=== PATIENT | female | born 1970 | race Caucasian/White ===

== ENCOUNTER 2018-08-03 06:47 | Inpatient (IN) | payer OTHER ==
[2018-08-03] VITALS (35 sets, daily range): BP systolic 123–150; BP diastolic 72–96; PULSE 68–104; RESP 15–25; Ht 157.5 cm; Wt 67.8 kg
[~2018-08-03] VITALS: Ht 157.5 cm; Wt 67.8 kg
[~2018-08-03 06:47] MED LIST: AMIT50TA3; CALC1TAB80; HYDR25TA6; LOSA50TA14
[2018-08-03] MEDS ORDERED: METOCLOPRAMIDE 10 MG INJ ONE (07:00)
[2018-08-03] MEDS ORDERED: CEFAZOLIN 1 GM INJ ONE (07:00)
[2018-08-03] MEDS ORDERED: LIDOCAINE 2% (SDV) 5 ML INJ ONE (07:00)
[2018-08-03] MEDS ORDERED: PROPOFOL 200 MG INJ ONE (07:00)
[2018-08-03] MEDS ORDERED: DEXAMETHASONE 4 MG/ML 5 ML INJ ONE (07:00)
[2018-08-03] MEDS ORDERED: DESFLURANE 15 MIN ONE (07:00)
[2018-08-03] MEDS ORDERED: ROCURONIUM 50 MG INJ ONE (08:05)
[2018-08-03] MEDS ORDERED: SUCCINYLCHOLINE CHLORIDE 100 MG/5 ML SYG IV ONE (08:05)
[2018-08-03] MEDS ORDERED: MIDAZOLAM 1 MG/ML 2 ML INJ ONE (08:05)
--- NOTE | 2018-08-03 08:19 | PREAC ---
Date/Time of Note Date/Time of Note DATE: 08/03/18 TIME: 08:18 Anesthesia Eval and Record Evaluation Time Pre-Procedure Interview DATE: 08/03/18 TIME: 08:18 Age 48 Sex female NPO: 8 hrs Preoperative diagnosis L5-S1 disc herniation Planned procedure L5-S1 minimally invasive decompression and fusion Past Medical History Past Medical History: Includes Cardio: HTN Neuro: Peripheral neuropathy Surgery & Anesthesia Issues No known issue Meds Anticoagulation: No Beta Mary within 24 hr: No Reason Beta Mary not given: Pt. not on B-Mary Reported Medications Losartan Potassium* (Losartan Potassium*) 50 Mg Tablet, #30 11/05/15 Hydrochlorothiazide* (Hydrochlorothiazide*) 25 Mg Tab, #30 16 Calcium Carbonate/Vitamin D3 (Oysco 500+D Tablet) 1 Tab Tablet, #60 11/05/15 Amitriptyline Hcl* (Amitriptyline Hcl*) 50 Mg Tablet, #30 16 Meds reviewed: Yes Allergies Coded Allergies: No Known Allergy (Unverified , 11/05/15) Allergies Reviewed: Yes Labs/Studies Labs Reviewed: Reviewed by anesthesiologist test: Negative Pre-procedure Exam Last vitals Vital Signs Date Temp Pulse Resp B/P (MAP) Pulse Ox O2 O2 Flow FiO2 Time Delivery Rate 08/03/18 98.3 68 19 142/89 99 Room Air 07:27 (106) Airway: Adequate mouth opening, Adequate thyromental dist Mallampati: Mallampati III Teeth: Normal Lung: Normal Heart: Normal ASA Physical Status ASA physical status: 2 Emergency: None Planned Anesthetic General/MAC: ETT Planned Pain Management Parenteral pain med, Local by surgeon Pre-operative Attestations Prior to commencing anesthesia and surgery, the patient was re-evaluated, there was verification of: *The patient's identity *The results of appropriate recent lab work and preoperative vital signs *The above evaluation not changing prior to induction *Anesthetic plan, risk benefits, alternative and complications discussed with patient/family; questions answered; patient/family understands, accepts and wishes to proceed. ANDIE THOMPSON MD Aug 03, 2018 08:19
[2018-08-03] MEDS ORDERED: FENTAnyl 50 MCG/ML VIAL IV PRN (08:30)
[2018-08-03] MEDS ORDERED: HYDROmorphONE 1 MG/5 ML IV SYRINGE IV PRN ×2 (08:30)
[2018-08-03] MEDS ORDERED: LABETALOL HCL 20MG INJ IV PRN (08:30)
[2018-08-03] MEDS ORDERED: hydrALAzine 20 MG INJ IV PRN (08:30)
[2018-08-03] MEDS ORDERED: LEVALBUTEROL (NEB) 1.25 MG/0.5 ML AMP HHN PRN (08:30)
[2018-08-03] MEDS ORDERED: DIPHENHYDRAMINE 50 MG INJ IV PRN (08:30)
[2018-08-03] MEDS ORDERED: IPRATROPIUM (NEB) 0.5 MG/2.5 ML AMP HHN PRN (08:30)
[2018-08-03] MEDS ORDERED: MEPERIDINE 25 MG INJ IV PRN (08:30)
[2018-08-03] MEDS ORDERED: ONDANSETRON 4 MG INJ IV PRN (08:30)
[2018-08-03] MEDS ORDERED: POLYMYXIN/BACITRACIN 1L IRRIG ONE (08:39)
[2018-08-03] MEDS ORDERED: BUPIVACAINE 0.5% (SDV) 30 ML INJ ONE (08:41)
[2018-08-03] MEDS ORDERED: BUPIVACAINE 0.5%/EPI (SDV) 30 ML INJ ONE (08:41)
[2018-08-03] MEDS ORDERED: GELATIN SIZE 100 SPONGE ONE (08:41)
[2018-08-03] MEDS ORDERED: THROMBIN 5000 UNIT VIAL ONE (08:42)
--- NOTE | 2018-08-03 09:02 | HPN ---
Date/Time of Note Date/Time of Note DATE: 08/03/18 TIME: 09:01 Interval H&P Admission Note Pt. seen H&P reviewed: Systems changes noted below Patient with continued low back pain and radiating left more than right lower extremity pain and numbness. LIZZY LIAO MD Aug 03, 2018 09:02
[2018-08-03] MEDS ORDERED: LIDOCAINE 1% (MPF) 30 ML INJ ONE (09:42)
[2018-08-03] MEDS ORDERED: HYDROmorphONE 2 MG/ML SYG ONE (14:17)
[2018-08-03] MEDS ORDERED: BISACODYL 10 MG SUPP PR PRN (14:30)
[2018-08-03] MEDS ORDERED: NALOXONE (0.4 MG/ML) INJ IV PRN (14:30)
[2018-08-03] MEDS ORDERED: traMADol 50 MG TAB PO PRN (14:30)
[2018-08-03] MEDS: HYDROCODONE/APAP (10/325) TAB PO SCH ×2 (14:30→20:38)
--- NOTE | 2018-08-03 14:46 | OPR ---
Date/Time of Note Date/Time of Note DATE: 08/03/18 TIME: 14:46 Operative Report Procedure Date: Aug 03, 2018 Preoperative Diagnosis Please see below. Postoperative Diagnosis Please see below. Operation/Procedure Performed Please see below. Surgeon see signature line Information Receptionist None Anesthesia Type: general Estimated Blood Loss: 50 - 100 ml's (100cc) Transfusion none Specimen None Grafts/Implants Please see below. Tubes/Drains None Complications none Pt Condition Post Procedure: stable Disposition: PACU Procedure Description Date of operation: 08/03/2018 Operating surgeon: Samy Liao M.D. Preoperative diagnosis: 1. L5-S1 spondylolisthesis (grade 1) 2. Severe L5-S1 neuroforaminal stenosis Post operative diagnosis: 1. L5-S1 spondylolisthesis (grade 1) 2. Severe L5-S1 neuroforaminal stenosis Procedure(s) performed: 1. Decompressive left L5 hemilaminectomy (more than would be required for a simple transforaminal lumbar interbody fusion) 2. Complete left L5-S1 facetectomy for L5-S1 transforaminal interbody arthrodesis 3. Placement of intervertebral cage at L5-S1 (Nexxt Spine 9 mm height Three-D printed titanium TLIF cage) 4. L5-S1 posterior instrumentation (percutaneous RTI Devon 6.5 mm diameter pedicle screw at L5 and 7.5 mm diameter at S1) 5. L5-S1 posterior arthrodesis 6. Bone marrow aspirate harvest 7. Morselized local autologous bone graft harvest 8. Morcellized allograft placement (demineralized bone matrix putty) 9. Intraoperative fluoroscopy with professional interpretation 10. Intraoperative microscope with microdissection 11. Intraoperative neurophysiologic monitoring including SSEP, MEP and EMG testing Indication for procedure: This is a 48-year-old female with more than 1 year history of progressively increasing axial low back pain as well as radiating lower extremity pain much greater on the left than the right that appears to be at least in part in the L5 distribution involving pain, and numbness and mild weakness. The patient has already undergone outpatient physical therapy as well as interventional pain management. The patient has been taking tramadol and [place] in the past but still continues to have pain. The above surgery was discussed in detail with both the patient in a clinic setting as well as in the preoperative area with both the patient, her brothers and her fianc. The risks and benefits were again discussed in detail with the patient and her family with the risks including bleeding, infection, weakness, numbness, paralysis, cerebrospinal fluid leak, bowel or bladder dysfunction, failure of improvement of symptoms or worsening of symptoms, need for further surgeries including revision or extension of the decompression or fusion, as well as those risks associated with surgery and general anesthesia including heart attack, stroke, pneumonia, pulmonary embolism and . The patient and her family fully understood the above discussion and wished to proceed with the surgery. Description of operative procedure: The patient was brought to the operating r oom and after general anesthesia was obtained, she was placed prone on top of the open Lm table. Her arms were abducted less than 90 and placed in superman position. All pressure points were noted and padded appropriately. The midline lumbar spine was marked. A vertical paraspinal lines were marked approximately 4-1/2 cm lateral to midline on each side. After the skin was prepped and draped under standard sterile fashion, the spinal needle was inserted under AP fluoroscopy and the pedicle entry points of L5 and S1 were located along the lateral paraspinal lines. Then small vertical incisions connecting the entry points of the spinal needles was marked on each side. Local anesthetic were infiltrated into the marked incisions. The patient's grade 1 L5-S1 spondylolisthesis was noted on the lateral x-rays. The skin was then incised down to the level of the fascia. The Jamshidi needles were then used in order to cannulate the L5 and S1 pedicles using a combination of AP and lateral fluoroscopy. When the tip of the Jamshidi needle was at the pedicle vertebral body junction, another AP fluoroscopy was taken to confirm that the medial wall of the pedicles was not breached. Then the Jamshidi needles were slightly further advanced into the vertebral bodies. At the S1 level, attempt was made to points the entry point of the Jamshidi needles as close to the sacral promontory as possible. The Jamshidi needles were then exchanged with K wires. The K wires were then tested with EMG testing and all the testing thresholds were greater than 12 mA. Then the appropriate sized pedicle screws as noted above were placed on the right side under direct lateral fluoroscopy. Bicortical purchase was achieved at S1. No screws were placed on the left side yet and the K wires were then bent to the side and stapled to the drapes for now. The sharp K wire was inserted under direct lateral fluoroscopy over the left L5-S1 facet complex perpendicular to the L5-S1 disc space. Serial tube dilators were inserted and the posterior soft tissue was dissected off the posterior bony elements. The final working tube was inserted under direct lateral fluoroscopy medialized and placed parallel to the L5-S1 disc space and fixed to the table in that position. The operating microscope was brought into the field. The posterior soft tissue was denuded off the left L5-S1 facet complex. The L5-S1 facet complex was severely arthritic. The L5-S1 joint space and the synovium was then coagulated. Using a combination of a high-speed drill, curettes and Kerrison rongeurs we then performed a complete left L5-S1 facetectomy and foraminotomy. The left L5-S1 foramen was severely stenotic due to both foraminal disc herniation as well as facet arthropathy and disc collapse. The neuroforamen was completely decompressed. We also performed a left L5 decompressive hemilaminectomy. Although the ligamentum flavum was still intact we noted some intermittent clear fluid coming from midline that appeared to be CSF. This was covered up by an cottonoid. All the bone was harvested for later grafting. There was also a heavily calcified posterior disc osteophyte complex covering the L5-S1 annulus that had to be drilled down. The annulus was then cut. An osteotome had to be used initially under direct lateral fluoroscopy and are to be able to get into the L5-S1 disc space. Using serial kuldip we were able to perform the disc prep work. Care was taken not to injure the endplates. The disc space was collapsed and we were able to distract it up to a height of 9 mm using a less aggressive kuldip in her and to preserve the endplates. The endplates were completely decorticated and the disc material was removed. The disc space was copiously irrigated with antibiotic solution. Then the appropriate size intervertebral cage was packed with a combination of the locally harvested morcellized autologous bone graft, bone marrow aspirate that was harvested during the cannulation of the pedicles and demineralized bone matrix allograft putty. Some of the remaining biologic material was packed into the anterior part of the L5-S1 disc space. Then the cage was inserted under direct lateral fluoroscopy medialized and countersunk. Then several pieces of Surgicel was placed over the exposed dura that appeared to be intact. Then some DuraSeal was placed over the exposed dura and the neuroforamen. The remaining amount of biologic material was placed over the neuroforamen for posterior arthrodesis. The tube was then removed. The same sized pedicle screws were also placed on the left side under direct lateral fluoroscopy. Then the appropriate size christopher was inserted and the setscrews were then placed at the S1 level and tightened on each side. Using reducers simultaneously we were able to reduce at the L5 level as well allowing us to reduce the L5-S1 spondylolisthesis while taking serial lateral x-rays. All the set screws were then fully tightened with the torque and counter torque wrench device. The pedicle screw posts were then broken off. Final AP and lateral x-rays showed good positioning of the hardware. The wounds were copiously irrigated with anabolic solution. The muscle and fascia layers were then reapproximated with interrupted sutures. The dermal layers were reapproximated with interrupted sutures. The skin was reapproximated with a simple running Rapide 3-0 suture. A sterile dressing was placed on each of the incisions. The patient was then placed supine on the hospital bed. She was then woken up extubated and transported to the recovery room in stable condition. The patient was moving her upper and lower extremities equally and to command including ankle dorsiflexion and plantar flexion well. Estimated blood loss: 100 cc Blood products administered: None Packs/drains: None Type of anesthesia: General Incision: Bilateral paraspinal lumbar Skin closure: Simple running Rapide 3-0 suture Wound classification: Clean Specimen removed: None Patient's condition: Stable Prognosis: Good SAMY LIAO MD Aug 03, 2018 14:46
--- NOTE | 2018-08-03 14:46 | SIPON ---
Date/Time of Note Date/Time of Note DATE: 08/03/18 TIME: 14:44 Operative Report Preoperative Diagnosis L5-S1 spondylolisthesis (Grade I) with severe foraminal stenosis Postoperative Diagnosis Same as above Operation/Procedure Performed Minimally invasive L5-S1 transforaminal interbody fusion with posterior instrumented fusion Surgeon see signature line speech assistant None Anesthesia: general Estimated blood loss: 50 - 100 ml's (100cc) Transfusion Required none Specimen None Grafts/Implants See op report Complications none LIZZY LIAO MD Aug 03, 2018 14:46
[2018-08-03] MEDS: HYDROmorphONE 1 MG/5 ML IV SYRINGE IV PRN ×2 (15:06→16:12)
[2018-08-03] MEDS: FENTAnyl 50 MCG/ML VIAL IV PRN ×2 (15:21→15:50)
[2018-08-03] MEDS: D5W-0.45 NACL + KCL 20 MEQ 1,000 ML IV SCH (17:43)
[2018-08-03] MEDS: HYDROmorphONE 0.5 MG/0.5 ML SYG IV PRN ×3 (18:44→22:51)
[2018-08-03] MEDS: CYCLOBENZAPRINE 10 MG TAB PO PRN (19:21)
[2018-08-03] MEDS: CEFAZOLIN 1 GM/50 ML (PMX) 50 ML IVPB SCH (20:03)
[2018-08-03] MEDS: traMADol 50 MG TAB PO SCH (22:03)
[2018-08-03] MEDS: DOCUSATE SODIUM 100 MG CAP PO SCH (22:03)
[2018-08-04 00:10] VITALS: BP 137/79; PULSE 88; RESP 18
[2018-08-04] MEDS: ONDANSETRON 4 MG INJ IV PRN ×2 (01:48→07:39)
[2018-08-04] MEDS: HYDROmorphONE 0.5 MG/0.5 ML SYG IV PRN ×5 (01:52→09:58)
[2018-08-04] MEDS: HYDROCODONE/APAP (10/325) TAB PO SCH ×4 (02:50→20:30)
[2018-08-04] MEDS: CEFAZOLIN 1 GM/50 ML (PMX) 50 ML IVPB SCH ×2 (02:53→09:56)
[2018-08-04] MEDS: traMADol 50 MG TAB PO SCH ×6 (04:00→23:36)
[2018-08-04] MEDS: D5W-0.45 NACL + KCL 20 MEQ 1,000 ML IV SCH (04:03)
[2018-08-04] MEDS: PANTOPRAZOLE 40 MG INJ IV SCH (06:48)
[2018-08-04 07:32] VITALS: BP 130/81; PULSE 81; RESP 16
[2018-08-04] MEDS: DOCUSATE SODIUM 100 MG CAP PO SCH ×2 (09:56→22:08)
[2018-08-04] MEDS: CYCLOBENZAPRINE 10 MG TAB PO PRN ×2 (10:50→10:51)
[2018-08-04] MEDS: CYCLOBENZAPRINE 10 MG TAB PO SCH ×2 (10:51→22:08)
[2018-08-04] MEDS: HYDROmorphONE 0.2 MG/ML PCA IV SCH ×2 (11:22→17:19)
--- NOTE | 2018-08-04 12:35 | HP ---
Date/Time of Note Date/Time of Note DATE: 08/04/18 TIME: 12:33 Assessment/Plan VTE Prophylaxis Risk score (from Nsg)>0 risk: 11 SCD applied (from Nsg): Yes Pharmacological prophylaxis: LMWH Lines/Catheters IV Catheter Type (from Nrsg): Peripheral IV Urinary Cath still in place: Yes (IN OR) Reason Cath still needed: skin wounds contaminated by urine Assessment/Plan Hospital Course 1) back pain - s/p surgery - pain medication - continue to monitor Results 24hrs Laboratory Tests Test 08/03/18 14:50 Urine Color YELLOW Urine Clarity CLOUDY A Urine pH 8.0 Urine Specific [place] 1.009 Urine Ketones NEGATIVE Urine Nitrite NEGATIVE Urine Bilirubin NEGATIVE Urine Urobilinogen NEGATIVE Urine Leukocyte Esterase NEGATIVE Urine Microscopic RBC 0 Urine Microscopic WBC 0 Urine Amorphous Crystals FEW A Urine Mucus FEW A Urine Hemoglobin NEGATIVE Urine Glucose NEGATIVE Urine Total Protein NEGATIVE HPI/ROS Admit Date/Time Admit Date/Time Aug 03, 2018 at 06:47 Hx of Present Illness Patient with L5-S1 spondylolisthesis (Grade I) with severe foraminal stenosis comes in for surgical fusion. Patient underwent procedure and is here for continue post operative care PMH/Family/Social Past Medical History Medical History: no pertinent history Medications Current Medications Potassium Chloride/Dextrose/ Sod Cl 1,000 ml @ 100 mls/hr Q10H IV Last administered on 08/04/18at 04:03; Admin Dose 100 MLS/HR; Start 08/03/18 at 14:28 Acetaminophen/ Hydrocodone Bitart (Denio (10/325)) 2 tab Q6H PO Last administered on 08/04/18at 09:02; Admin Dose 2 TAB; Start 08/03/18 at 14:30 Ondansetron HCl (Zofran Inj) 4 mg Q6H PRN IV NAUSEA AND/OR VOMITING Last administered on 08/04/18at 07:39; Admin Dose 4 MG; Start 08/03/18 at 14:30 Bisacodyl (Dulcolax Supp) 10 mg DAILY PRN PA CONSTIPATION; Start 08/03/18 at 14:30 Docusate Sodium (Colace) 100 mg BID PO Last administered on 08/04/18at 09:56; Admin Dose 100 MG; Start 08/03/18 at 21:00 Pantoprazole (Protonix Iv) 40 mg DAILY@06 IV Last administered on 08/04/18at 06:48; Admin Dose 40 MG; Start 08/04/18 at 06:00 Naloxone HCl (Narcan) 0.2 mg Q2M PRN IV respiratory depression; Start 08/03/18 at 14:30 Hydromorphone HCl (Dilaudid) 0.4 mg Q30MIN PRN IV SEVERE PAIN LEVEL 7-10 Last administered on 08/04/18at 09:58; Admin Dose 0.4 MG; Start 08/03/18 at 21:00 Hydromorphone HCl (Dilaudid RAIL TRANSIT OPERATOR) 0 MG/HR CONTINUOUS R... Q4PCA IV Last administered on 08/04/18at 11:22; Admin Dose 6 MG; Start 08/04/18 at 11:00; Stop 08/05/18 at 11:00 Cyclobenzaprine HCl (Flexeril) 10 mg TID PO ; Start 08/04/18 at 13:00 Tramadol HCl (Ultram) 50 mg Q4H PO ; Start 08/04/18 at 15:00 Coded Allergies: No Known Allergy (Unverified , 11/05/15) Social History Smoking Status: Never smoker Exam/Review of Systems Vital Signs Vitals Vital Signs Date Temp Pulse Resp B/P (MAP) Pulse Ox O2 O2 Flow FiO2 Time Delivery Rate 08/04/18 97.6 81 16 130/81 99 Nasal 07:32 (97) Cannula 08/04/18 2.0 00:10 Intake and Output 08/03/18 08/03/18 08/04/18 1515:00 23:00 07:00 IntakeIntake Total 3000 ml 530 ml 1150 ml OutputOutput Total 625 ml 500 ml 2600 ml BalanceBalance 2375 ml 30 ml -1450 ml Exam Constitutional: well developed Head: normocephalic, atraumatic Neck: supple Respiratory: diminished breath sounds Cardiovascular: regular rate and rhythm Gastrointestinal: soft, non-tender Extremities: normal pulses CASEY COOPER Aug 04, 2018 12:35
[2018-08-04 15:15] VITALS: BP 136/80; PULSE 88; RESP 18
[2018-08-04] MEDS ORDERED: OXYCODONE/ACETAMINOPHEN (5/325) TAB PO SCH (18:00)
[2018-08-04 20:15] VITALS: BP 130/81; PULSE 85; RESP 18
[2018-08-04] MEDS ORDERED: OXYCODONE/ACETAMINOPHEN (5/325) TAB PO PRN (21:00)
[2018-08-04] MEDS ORDERED: AMITRIPTYLINE 50 MG TAB PO SCH (21:00)
--- NOTE | 2018-08-04 21:34 | CONS ---
Date/Time of Note Date/Time of Note DATE: 08/04/18 TIME: 21:33 Assessment/Plan Assessment/Plan Assessment/Plan Date of progress note: 08/04/2018 The patient is status post minimally invasive L5-S1 transforaminal lumbar interbody fusion postop day 1. The patient's postop pain is now better controlled with the addition of more pain medications. Her fianc is at her bedside. She is able to move her upper and lower extremities equally and with good strength bilaterally. Her preoperative left lower extremities radiating pain is now resolved. She does not have any new numbness of her upper or lower extremities. Her lumbar incisions are clean dry and intact. With the help of the patient's nurse, we have been able to get the patient out of bed and she has taken several steps around her room and is now sitting on a chair and appears to be quite comfortable. As I have spoken with the patient and her fianc, she can receive more physical therapy today. From a neurosurgical perspective she may be discharged home tomorrow. Activities as tolerated by the patient is to avoid lifting more than 15 or 20 pounds of weight and to avoid excessive bending and twisting at the waist. The patient is to wear her LSO brace when up and ambulating. She may shower and she needs to keep her incisions clean dry and intact. She will follow up with me in clinic in 2-3 weeks. All the patient and her fianc's questions have been answered. I have also relayed this information to Dr. Alcaraz's JEWELRY STORE MANAGER. LIZZY LIAO MD Aug 04, 2018 21:34
[2018-08-05] MEDS: HYDROmorphONE 0.2 MG/ML PCA IV SCH (01:39)
[2018-08-05 02:01] VITALS: BP 117/74; PULSE 92; RESP 18
[2018-08-05] MEDS: HYDROCODONE/APAP (10/325) TAB PO SCH ×3 (02:30→14:21)
[2018-08-05] MEDS: traMADol 50 MG TAB PO SCH ×5 (03:07→18:34)
[2018-08-05] MEDS: PANTOPRAZOLE 40 MG INJ IV SCH (06:48)
[2018-08-05 07:42] VITALS: BP 119/78; PULSE 79; RESP 18
[2018-08-05] MEDS: DOCUSATE SODIUM 100 MG CAP PO SCH (08:17)
[2018-08-05] MEDS: CYCLOBENZAPRINE 10 MG TAB PO SCH ×2 (08:19→13:22)
[2018-08-05] MEDS ORDERED: CALCIUM/VITAMIN D (500/200) TAB PO SCH (09:00)
[2018-08-05] MEDS ORDERED: LOSARTAN 50 MG TAB PO SCH (09:00)
[2018-08-05] MEDS ORDERED: HYDROCHLOROTHIAZIDE 25 MG TAB PO SCH (09:00)
--- NOTE | 2018-08-05 13:30 | PAC ---
Date/Time of Note Date/Time of Note DATE: 08/05/18 TIME: 13:30 Post-Anesthesia Notes Post-Anesthesia Note Last documented vital signs Vital Signs Date Temp Pulse Resp B/P (MAP) Pulse Ox O2 O2 Flow FiO2 Time Delivery Rate 08/05/18 18 09:00 08/05/18 98.3 79 119/78 97 Room Air 07:42 (92) 08/05/18 2.0 02:01 Activity: WNL Respiratory function: WNL Cardiovascular function: WNL Mental status: Baseline Pain reasonably controlled: Yes Hydration appropriate: Yes Nausea/Vomiting absent: Yes ANDIE THOMPSON MD Aug 05, 2018 13:30
[2018-08-05 14:37] VITALS: BP 114/80; RESP 17
[2018-08-05] MEDS ORDERED: TRAM50TA2 PO (15:13)
[2018-08-05] MEDS ORDERED: HYDR-3609 PO (15:13)
[2018-08-05] MEDS ORDERED: CYCL10TA7 PO (15:13)
[2018-08-05 19:34] VITALS: BP 129/71; PULSE 84; RESP 18
--- NOTE | 2018-08-11 21:12 | DS ---
Date/Time of Note Date/Time of Note DATE: 08/11/18 TIME: 21:05 Discharge Summary Admission/Discharge Info Admit Date/Time Aug 03, 2018 at 06:47 Discharge Date/Time Aug 05, 2018 at 21:00 Patient Condition: Stable Hx of Present Illness Patient with L5-S1 spondylolisthesis (Grade I) with severe foraminal stenosis comes in for surgical fusion. Patient underwent procedure and is here for continue post operative care. Hospital Course - L5-S1 spondylolisthesis (grade 1) and Severe L5-S1 neuroforaminal stenosis. S/p L5- S1 decompression and intervertebral cage placement by Dr Snider on 08/03/18. Pain is well control. Pt is able to ambulate with no problems, s/p PT eval ant treatment. Plan of care discussed with Dr Snider and Dr Alcaraz. Home Meds Active Scripts Tramadol HCl (Tramadol HCl) 50 Mg Tablet, 50 MG PO Q4H, #30 TAB Prov:JOSE F MOHAMUD 08/05/18 Hydrocodone/Acetaminophen (Hydrocodone-Acetamin 10-325 mg) 1 Each Tablet, 2 TAB PO Q6H, #30 TAB Prov:JOSE F MOHAMUD 08/05/18 Cyclobenzaprine Hcl* (Cyclobenzaprine Hcl*) 10 Mg Tablet, 10 MG PO TID, #30 TAB Prov:JOSE F MOHAMUD 08/05/18 Reported Medications Losartan Potassium* (Losartan Potassium*) 50 Mg Tablet, #30 11/05/15 Hydrochlorothiazide* (Hydrochlorothiazide*) 25 Mg Tab, #30 16 Calcium Carbonate/Vitamin D3 (Oysco 500+D Tablet) 1 Tab Tablet, #60 11/05/15 Amitriptyline Hcl* (Amitriptyline Hcl*) 50 Mg Tablet, #30 16 Follow-up Plan LSO brace when out of bed, follow-up with Dr. Lewis in 2 weeks. Primary Care Provider [facility] Time spent on discharge: > 30 minutes JOSE F MOHAMUD Aug 11, 2018 21:12
== END 2018-08-05 21:00 | disposition home or self-care (01) | DRG 455 ==
LOC: REC 06:47 → MS1 17:14 → EDSTATUS 08-19 07:30
PROVIDERS: ADMIT Neurological Surgery; ATTEND Neurological Surgery
PROC: 0SG3071 Fusion of Lumbosacral Joint with Autologous Tissue Substitute, Posterior Approach, Posterior Column, Open Approach (ICD-10-PCS; 2018-08-03)
PROC: 0SB40ZZ Excision of Lumbosacral Disc, Open Approach (ICD-10-PCS; 2018-08-03)
PROC: 07DS3ZZ Extraction of Vertebral Bone Marrow, Percutaneous Approach (ICD-10-PCS; 2018-08-03)
PROC: 4A11X4G Monitoring of Peripheral Nervous Electrical Activity, Intraoperative, External Approach (ICD-10-PCS; 2018-08-03)
PROC: 0SG30AJ Fusion of Lumbosacral Joint with Interbody Fusion Device, Posterior Approach, Anterior Column, Open Approach (ICD-10-PCS; principal; 2018-08-03 09:00)
DX: M43.17 Spondylolisthesis, lumbosacral region (principal); M51.27 Other intervertebral disc displacement, lumbosacral region; M48.07 Spinal stenosis, lumbosacral region; I10 Essential (primary) hypertension
CPT/HCPCS: 72114; 81001; 87086; 97116; 97162; 97530; C1713; C9113; J0690; J1100; J1170; J2250; J2405; J2765; J3010; J3480; L0639

== ENCOUNTER 2018-08-19 05:48 | Day surgery (SDC) | payer OTHER ==
[2018-08-16 17:02] VITALS: BMI 26.3
[2018-08-19] VITALS (9 sets, daily range): BP systolic 99–120; BP diastolic 68–88; PULSE 74–80; RESP 12–18; Ht 160 cm; Wt 66.2 kg
[~2018-08-19] VITALS: Ht 160 cm; Wt 66.2 kg
[~2018-08-19 05:48] MED LIST changes: +CYCL10TA7 PO; +HYDR-3609 PO; +TRAM50TA2 PO
[2018-08-19] MEDS ORDERED: FENTAnyl 50 MCG/ML VIAL IV PRN ×2 (07:00)
[2018-08-19] MEDS ORDERED: OXYCODONE/ACETAMINOPHEN (5/325) TAB PO PRN ×2 (07:00)
[2018-08-19] MEDS ORDERED: HYDROmorphONE 1 MG/5 ML IV SYRINGE IV PRN (07:00)
[2018-08-19] MEDS ORDERED: morphine (1 MG/ML) 10ML SYRINGE IV PRN (07:00)
[2018-08-19] MEDS ORDERED: ALBUTEROL 0.083% (NEB) 2.5 MG/3 ML AMP HHN PRN (07:00)
[2018-08-19] MEDS ORDERED: MEPERIDINE 25 MG INJ IV PRN (07:00)
[2018-08-19] MEDS ORDERED: ONDANSETRON 4 MG INJ IV PRN (07:00)
[2018-08-19] MEDS ORDERED: DIPHENHYDRAMINE 50 MG INJ IV PRN (07:00)
[2018-08-19] MEDS ORDERED: LABETALOL HCL 20MG INJ IV PRN (07:00)
--- NOTE | 2018-08-19 07:01 | PREAC ---
Date/Time of Note Date/Time of Note DATE: 08/19/18 TIME: 07:00 Anesthesia Eval and Record Evaluation Time Pre-Procedure Interview DATE: 08/19/18 TIME: 07:00 Age 48 Sex female NPO: 8 hrs Preoperative diagnosis L foot bunion Planned procedure L foot bunionectomy w/ osteotomy Past Medical History Past Medical History: Includes (fibromyalgia) Cardio: HTN Musculoskeletal: Rheumatoid arthritis Heme: Anemia Psych: Depression Surgery & Anesthesia Issues No known issue (lumbar surgery, hysterectomy) Meds Anticoagulation: No Beta Mary within 24 hr: No Reason Beta Mary not given: Pt. not on B-Mary Active Scripts Tramadol HCl (Tramadol HCl) 50 Mg Tablet, 50 MG PO Q4H, #30 TAB Prov:JOSE F MOHAMUD 08/05/18 Hydrocodone/Acetaminophen (Hydrocodone-Acetamin 10-325 mg) 1 Each Tablet, 2 TAB PO Q6H, #30 TAB Prov:JOSE F MOHAMUD 08/05/18 Cyclobenzaprine Hcl* (Cyclobenzaprine Hcl*) 10 Mg Tablet, 10 MG PO TID, #30 TAB Prov:JOSE F MOHAMUD 08/05/18 Reported Medications Losartan Potassium* (Losartan Potassium*) 50 Mg Tablet, #30 11/05/15 Hydrochlorothiazide* (Hydrochlorothiazide*) 25 Mg Tab, #30 11/05/15 Calcium Carbonate/Vitamin D3 (Oysco 500+D Tablet) 1 Tab Tablet, #60 11/05/15 Amitriptyline Hcl* (Amitriptyline Hcl*) 50 Mg Tablet, #30 11/05/15 Meds reviewed: Yes Allergies Coded Allergies: No Known Allergy (Unverified , 11/05/15) Allergies Reviewed: Yes Labs/Studies Labs Reviewed: Reviewed by anesthesiologist test: Negative Studies: ECG (nml, nsr), CXR (no active dz) Pre-procedure Exam Airway: Adequate mouth opening, Adequate thyromental dist Mallampati: Mallampati II Teeth: Abnormal (multiple missing lower teeth) Lung: Normal Heart: Normal ASA Physical Status ASA physical status: 2 Emergency: None Planned Anesthetic General/MAC: LMA Pre-operative Attestations Prior to commencing anesthesia and surgery, the patient was re-evaluated, there was verification of: *The patient's identity *The results of appropriate recent lab work and preoperative vital signs *The above evaluation not changing prior to induction *Anesthetic plan, risk benefits, alternative and complications discussed with patient/family; questions answered; patient/family understands, accepts and wishes to proceed. SERENA MILLAN Aug 19, 2018 07:01
[2018-08-19] MEDS ORDERED: LIDOCAINE 2% (MDV) 20 ML INJ ONE (07:08)
[2018-08-19] MEDS ORDERED: DEXAMETHASONE 4 MG/ML 1 ML INJ ONE (07:08)
[2018-08-19] MEDS ORDERED: BUPIVACAINE 0.5% (SDV) 30 ML INJ ONE (07:08)
[2018-08-19] MEDS ORDERED: POLYMYXIN/BACITRACIN 1L IRRIG ONE (07:10)
[2018-08-19] MEDS ORDERED: FENTAnyl 50 MCG/ML VIAL ONE (07:23)
[2018-08-19] MEDS ORDERED: ONDANSETRON 4 MG INJ ONE (07:23)
[2018-08-19] MEDS ORDERED: MIDAZOLAM 1 MG/ML 2 ML INJ ONE (07:23)
[2018-08-19] MEDS ORDERED: PROPOFOL 40 ML ONE (07:23)
[2018-08-19] MEDS ORDERED: CEFAZOLIN 1 GM INJ ONE (07:23)
[2018-08-19] MEDS ORDERED: LIDOCAINE 2% (SDV) 5 ML INJ ONE (07:23)
[2018-08-19] MEDS ORDERED: FAMOTIDINE 20 MG INJ ONE (07:24)
[2018-08-19] MEDS ORDERED: LACTATED RINGER'S 1,000 ML IV SCH (07:30)
--- NOTE | 2018-08-19 07:46 | HPN ---
Date/Time of Note Date/Time of Note DATE: 08/19/18 TIME: 07:46 Interval H&P Admission Note Pt. seen H&P reviewed: No system changes ZEESHAN ZARATE DPM Aug 19, 2018 07:46
[2018-08-19] MEDS ORDERED: METOCLOPRAMIDE 10 MG INJ ONE (08:21)
[2018-08-19] MEDS ORDERED: KETOROLAC 30 MG INJ ONE (08:21)
--- NOTE | 2018-08-19 08:40 | NUR ---
RECEIVED RESPONSIVE IN NO DISTRESS, LEFT FOOT DRESSING DRY AND INTACT WITH TOES EXPOSED, WARM TO TOUCH AND WITH GOOD CAP REFILL. ELEVATED LEFT FOOT ON A PILLOW AND ICE PACK PLACED OVER FOOT.
--- NOTE | 2018-08-19 08:41 | SIPON ---
Date/Time of Note Date/Time of Note DATE: 08/19/18 TIME: 08:40 Operative Report Preoperative Diagnosis bunion deformity left foot Postoperative Diagnosis bunion deformity left foot Operation/Procedure Performed bunionectomy with distal head osteotomy left first metatarsal Surgeon see signature line captain assistant none Anesthesia: general Estimated blood loss: none Transfusion Required none Specimen none Grafts/Implants none Complications none ZEESHAN ZARATE DPM Aug 19, 2018 08:41
[2018-08-19] MEDS: HYDROmorphONE 1 MG/5 ML IV SYRINGE IV PRN ×2 (09:02→09:12)
--- NOTE | 2018-08-19 09:22 | PAC ---
Date/Time of Note Date/Time of Note DATE: 08/19/18 TIME: 09:22 Post-Anesthesia Notes Post-Anesthesia Note Last documented vital signs Vital Signs Date Temp Pulse Resp B/P (MAP) Pulse Ox O2 O2 Flow FiO2 Time Delivery Rate 08/19/18 99 80 12 99/70 (80) 95 Room Air 09:09 08/19/18 8.0 08:49 08/19/18 99.0 08:40 Activity: WNL Respiratory function: WNL Cardiovascular function: WNL Mental status: Baseline Pain reasonably controlled: Yes Hydration appropriate: Yes Nausea/Vomiting absent: No DINA CHÁVEZ MD Aug 19, 2018 09:22
[2018-08-19] MEDS ORDERED: HYDROCODONE/APAP (5/325) TAB PO PRN (09:30)
--- NOTE | 2018-08-19 09:37 | NUR ---
AWAKE ALERT AND ORIENTED, STATED PAIN IS 1/10, NO S/S BLEEDING. LEFT LEG REMAINS ELEVATED ON A PILLOW WITH ICE PACK OVER FOOT. DAUGHTER UPDATED ON STATUS AND WILL COME IN 30 MINS TO APPLICATION SERVICES MANAGER PATIENT. REPORT TO MICHAEL CHERY, TRANSFERRED TO [facility], POST OP SHOE SENT WITH PATIENT.
--- NOTE | 2018-08-19 15:18 | NUR ---
1014-LEFT LEG ELEVATED,TOES WARM WITH PROMPT CAPILLARY REFILL,GOOD MOVEMENT & SENSATION.
--- NOTE | 2018-08-21 04:19 | OPR ---
DATE OF OPERATION: 08/19/2018 SURGEON: Harjeet Calderon DPM. ANESTHESIOLOGIST: Taylor Briscoe MD. ANESTHESIA: General. PREOPERATIVE DIAGNOSIS: Bunion deformity with hallux valgus, left foot. POSTOPERATIVE DIAGNOSIS: Bunion deformity with hallux valgus, left foot. OPERATION PERFORMED: Bunionectomy with distal head osteotomy, left first metatarsal. OPERATIVE PROCEDURE: The patient was brought into the operating room, placed on the table in a secure supine position. Cardiac monitoring, IV sedation, and an ankle pneumatic tourniquet were utilized for this case. Preoperatively, a total of twenty mL of Marcaine plain 0.05 percent were infiltrated in the form of a Gibson block into the left foot. Upon achieving anesthesia, the left foot and leg were prepped and draped in a sterile manner. The ankle pneumatic tourniquet was inflated to 250 mmHg. Procedure number 1 was then performed, a bunionectomy with osteotomy, left first metatarsal. A 4-cm dorsal medial incision was performed along the first metatarsophalangeal joint of the left foot. Incision was deepened. Superficial bleeders were cauterized and bovied as necessary. Next, the incision was deepened down to the capsule. A linear capsulotomy was performed. The capsule was reflected dorsally and plantarly. The hypertrophic medial eminence was transected with a power sagittal saw. A 0.45 Gregory wire was inserted from medial to lateral, 1.5 cm proximal to the metatarsophalangeal joint. A Chevron osteotomy was performed with the arms at 60 degrees. The osteotomy was through and through. The capital fragment was then trans located 3 mm laterally and fixated with an 18 mm x 3.0 mm cannulated Daphnie screw. Good fixation was achieved with no gapping or separation of the osteotomy site. The osteotomy was stable. The remaining bone was transected with a power sagittal saw and rasped smooth with a power rasp. Copious lavage was performed with sterile saline mixed with bacitracin solution. The capsule was then reapproximated with 2-0 and 3-0 Vicryl simple interrupted sutures. The subcutaneous tissue was closed with 4-0 Vicryl simple interrupted sutures, and the skin edges were reapproximated with a running 3-0 Prolene subcuticular stitch. The dressing consisted of pinch of benzoin cord Steri-Strips, Xeroform gauze, 4 x 4 gauze, 4 inch Kerlix roll, and a 2-inch Coban into a semi compressive dressing. Immediate hyperemia was noted to all digits of the left foot upon deflating the ankle tourniquet. No intraoperative complications were encountered. The patient tolerated the above procedure well and left the OR with vital signs stable and satisfactory. The patient will follow up 1 week postop. Dictated By: Harjeet Calderon DPM /[email or web address] /Document#: [id number]
== END 2018-08-19 10:14 | disposition home or self-care (01) ==
LOC: SDS 05:48
PROVIDERS: ATTEND Podiatrist Primary Podiatric Medicine
DX: M20.12 Hallux valgus (acquired), left foot (principal); M21.612 Bunion of left foot; I10 Essential (primary) hypertension
CPT/HCPCS: 28299; 80053; 85025; 85610; 85730; C1713; J0690; J1170; J1885; J2250; J2405; J2765; J3010; L3260; Z7512; Z7610; J1100